=== PATIENT | female | born 1985 | race African-American/Black ===

== ENCOUNTER 2018-01-29 08:50 | Inpatient (IN) ==
[2018-02-01 12:17] VITALS: BP 136/80
== END 2018-02-01 15:30 | disposition home or self-care (01) | DRG 690 ==
LOC: N.ED 08:50 → SUATTDRO 11:08 → N.EDINP 11:08 → N.2W 11:56 → N.2E 14:13
PROVIDERS: ADMIT Hospitalist; ATTEND Emergency Medicine